=== PATIENT | female | born 1945 | race Caucasian/White ===

== ENCOUNTER → 2018-10-30 11:38 | Outpatient (CLI) | payer MEDICARE, OTHER ==
[2015-03-03 08:01] VITALS: BMI 22.7
[~2018-10-30 11:38] MED LIST: CALCIUM 500 + D1 TAB PO; CINNAMON500 MG PO; CO Q-10200 MG PO; GARLIC1 CAP PO; PLAVIX75 MG PO; SELENIUM PO; SYNTHROID75 MCG PO; VITAMIN E400 UNI2 PO
--- NOTE | 2018-11-02 15:13 | ST ---
PATIENT:NAMAN ESPINOZA EKATERINA MEDICAL RECORD: [id number] SEX: F LOCATION:[facility] ORDER #: ADMISSION DATE: 10/30/18 AGE OF PATIENT: 73 REFERRING PHYSICIAN: INTERPRETING PHYSICIAN: SHANITA MERCADO MD DATE OF SERVICE: 10/30/2018 PROCEDURE: Nuclear stress test. INDICATION: Angina and coronary artery disease. She was exercised on standard Patrice protocol for 5 minutes achieving greater than 85% max target heart rate response with 31 mCi of sestamibi injected at peak stress, 11 mCi were used previously for rest images. FINDINGS: Gated SPECT reveals preserved ejection fraction at 65% with good wall motion and thickening and brightening throughout all segments. SPECT imaging Cardiolite was used as myocardial fusion agent. There is homogeneous uptake throughout all segments at rest and stress with no evidence of inducible ischemia or previous infarction. OVERALL IMPRESSION: 1. This is a normal nuclear stress test with no evidence of inducible ischemia or previous infarction. 2. Gated SPECT reveals a preserved ejection fraction at 65%. In this patient with ongoing symptomatology, the current scan does not suggest the presence of hemodynamically significant coronary artery disease. Evaluate noncardiac etiology of chest pain. TRANSINT:[id number] Voice Confirmation ID: [id number] DOCUMENT ID: [id number] SHANITA MERCADO MD at 1513 CC: [id number] DICTATION DATE: 10/31/18 1136 [employer]ER: 11/01/18 0411 DEP CLI 10/30/[address] [id number]
== END | disposition home or self-care (01) ==
LOC: D.HCCARDIO 11:00
PROVIDERS: ATTEND Internal Medicine Interventional Cardiology
DX: I25.119 Atherosclerotic heart disease of native coronary artery with unspecified angina pectoris (principal)